=== PATIENT | female | born 1950 | race Caucasian/White ===

== ENCOUNTER → 2017-01-18 | Outpatient (CLI) | payer MEDICARE, OTHER ==
--- NOTE | 2017-01-19 07:12 | ECHOF ---
DATE OF PROCEDURE January 18, [address] Kalin Wells This is a two-dimensional echo with spectral Doppler, color-flow and M-mode. It was obtained in a patient on cancer treatment. Left atrial dimension is normal. Left ventricle end-diastolic dimension is normal. Left ventricle wall thickness is normal. LV systolic function is normal with ejection fraction of 59%. Right atrium is normal. Right ventricle is normal. Aortic root dimension is normal. Mitral, aortic, and tricuspid valves are morphologically normal with mild mitral and mild tricuspid regurgitation with normal estimated pulmonary artery systolic pressure of 25. There is no pericardial effusion. IMPRESSION 1. Normal LV systolic function with ejection fraction of 59%. 2. Mild mitral regurgitation. 3. Mild tricuspid regurgitation with normal estimated pulmonary artery systolic pressure of 25. MTDD
== END ==
LOC: IMA 07:16
PROVIDERS: ATTEND Internal Medicine Hematology & Oncology
DX: C50.412 Malignant neoplasm of upper-outer quadrant of left female breast (principal); Z51.12 Encounter for antineoplastic immunotherapy; I08.1 Rheumatic disorders of both mitral and tricuspid valves
CPT/HCPCS: 93306